=== PATIENT | female | born 1980 | race Caucasian/White ===

== ENCOUNTER 2016-09-28 19:17 | Emergency (ER) | payer MEDICAID ==
--- NOTE | 2016-09-29 05:47 | ER ---
ADMIT: 09/28/2016 RM/LOC: ER [facility] MR#: [id number] [address] [id number] MAURICE GARRETT [address] [place] [address] Emergency Room Report SEX: F AGE: 36 : 1980 DATE: 09/28/2016 The patient is a 36-year-old female, student complaining of sore throat since this morning without URI symptoms, fevers or chills. Exam remarkable for nontoxic, afebrile female, without rash. Pharynx noninflamed. Strep screen negative. Culture pending. Recommend salt water gargles, lozenges, sprays, Tylenol and Motrin. Follow up Dr. Mtz as needed. Oscar Maradiaga MD/ jose JOB #: [id number] CC: Efraín Barrientos MD, Attending Physician Stephanie Mtz MD, Family Physician Stephanie Mtz MD
== END 2016-09-28 21:17 | disposition home or self-care (01) ==
LOC: ER 19:17
DX: J02.9 Acute pharyngitis, unspecified (principal)